=== PATIENT | female | born 1990 | race Caucasian/White ===

== ENCOUNTER 2017-01-24 16:22 | Emergency (ER) | payer OTHER ==
--- NOTE | 2017-01-24 17:46 | DIAGNOSTIC IMAGING REPORT ---
PROCEDURE: CT HEAD WITHOUT CONTRAST INDICATION: TRAUMA/INJURY TECHNIQUE: Axial CT images were acquired through the head. Coronal and sagittal reformations were created. Thin slice axial CT images through the facial bones with coronal and sagittal reformations. COMPARISON: None. FINDINGS: Head CT: No intracranial hemorrhage or extraaxial fluid collections. Ventricles are normal in size, shape and position. There is no mass, mass effect or midline shift. The churchill-white matter differentiation is normal. There is no edema. The calvarium is intact. No subgaleal hematoma. Facial bones CT: Nondisplaced impaction fracture of the midportion of the osseous nasal septum. Minimally displaced fracture of the right nasal bone and questionable nondisplaced fracture of the left. Transverse fracture through the anterior mid maxilla (best seen on sagittal series 602 image 34). A tiny fracture off the maxillary spine. Minimally displaced impaction fractures involving the medial maxillary sinus ralph bilaterally. Minor bowing deformities of lateral ralph of both maxillary sinuses. Maxillary sinuses are nearly completely opacified with a dependent air-fluid levels consistent with blood. The right-sided nasal passages are partially occluded. There is partial opacification of some of the right ethmoid air cells. Minimally displaced impaction fractures along the right medial orbital wall both ventrally and dorsally. Orbital floors and rims appear intact. Soft tissue contusion over the right cheek, and bilateral superior orbital rims, right greater than left. IMPRESSION: 1. No CT evidence of acute intracranial trauma. 2. Multiple minimally displaced fractures of the facial bones including nasal septum, nasal bone, maxilla, maxillary sinuses, and right medial orbital wall extending into the ethmoid air cells. [address] Jalloh at [address] scans at this facility use dose modulation, iterative reconstruction, and/or weight-based dosing when appropriate to reduce radiation dose to as low as reasonably achievable.
--- NOTE | 2017-01-24 17:50 | DIAGNOSTIC IMAGING REPORT ---
PROCEDURE: XR CHEST 2 VIEW INDICATION: TRAUMA TECHNIQUE: Two views. COMPARISON: None. FINDINGS: The cardiomediastinal contour and central vasculature are within normal limits. The lungs are clear without focal consolidation, pleural effusion, or pneumothorax. The visualized osseous structures are intact. IMPRESSION: 1. Normal chest.
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
--- NOTE | 2017-01-24 17:59 | ED ORDER SUMMARY ---
..... Patient: DANIEL DODGE OrderSheet [facility] VisitID: [id number] [place] [address] 26y, F Registration Date/Time: 01/24/2017 ORDER SHEET Weight: 74.8 kg (stated) Allergies: NKDA GENERAL ORDERS: CT Head wo Cont Urgent (16:34 01/24/2017 Chacho Chu) (Ack 16:53 TBergley) (17:00 [place]) CT Sinus/Facial Bones wo Cont Urgent (16:34 01/24/2017 Chacho Chu) (Ack 16:53 TBergley) (17:00 [place]) Chest 2V Urgent (16:35 01/24/2017 hCacho Chu) (Ack 16:53 TBergley) (17:00 [place]) CBC w Diff Urgent (16:35 01/24/2017 Chacho Chu) (Ack 16:53 TBergley) (Cancelled: cannot obtain IV18:11 RMarsden R.N.) CMP Urgent (16:35 01/24/2017 Chacho Chu) (Ack 16:53 TBergley) (Cancelled: cannot obtain IV18:11 RMarsden R.N.) PT with INR Urgent (16:35 01/24/2017 Chacho Chu) (Ack 16:53 TBergley) (Cancelled: cannot obtain IV18:11 RMarsden R.N.) PTT Urgent (16:35 01/24/2017 Chacho Chu) (Ack 16:53 TBergley) (Cancelled: cannot obtain IV18:11 RMarsden R.N.) UA-Culture if indicated Urgent (16:35 01/24/2017 Chacho Chu) (Ack 16:53 TBergley) (Cancelled: cannot obtain IV18:11 RMarsden R.N.) Urine Urgent (16:35 01/24/2017 Chacho Chu) (Ack 16:53 TBergley) (Cancelled: cannot obtain IV18:11 RMarsden R.N.) Ice (17:01/24/2017 Chacho Chu) (17:29 SReitz R.N.) MEDICATION ORDERS: Percocet PO 10/650 mg (HIGH ALERT MEDICATION, NOW) (17:48 01/24/2017 Chacho Chu) (17:53 Sheila R.NFemi) IV FLUIDS: Morphine IV 4 mg (HIGH ALERT MEDICATION, NOW) (16:35 01/24/2017 Chacho Chu) (Ack 16:43 Sheila R.N.) (Cancelled: Unable to obtain IV17:49 Sheila R.N.) ORDER SHEET NOTES: [Electronically signed by Danisha Gomez R.N. (18:59 01/24/2017)] [Electronically signed by Jorge Jalloh Dr. (09:25 01/27/2017)] [Electronically locked/signed by Danisha Gomez R.N. (18:59 01/24/2017)]
--- NOTE | 2017-01-24 17:59 | ED ORDER SUMMARY ---
..... Patient: DANIEL DODGE OrderSheet [facility] VisitID: [id number] [place] [address] 26y, F Registration Date/Time: 01/24/2017 ORDER SHEET Weight: 74.8 kg (stated) Allergies: NKDA GENERAL ORDERS: CT Head wo Cont Urgent (16:34 01/24/2017 Chacho Chu) (Ack 16:53 TBergley) (17:00 [place]) CT Sinus/Facial Bones wo Cont Urgent (16:34 01/24/2017 Chacho Chu) (Ack 16:53 TBergley) (17:00 [place]) Chest 2V Urgent (16:35 01/24/2017 Chacho Chu) (Ack 16:53 TBergley) (17:00 [place]) CBC w Diff Urgent (16:35 01/24/2017 Chacho Chu) (Ack 16:53 TBergley) (Cancelled: cannot obtain IV18:11 RMarsden R.N.) CMP Urgent (16:35 01/24/2017 Chacho Chu) (Ack 16:53 TBergley) (Cancelled: cannot obtain IV18:11 RMarsden R.N.) PT with INR Urgent (16:35 01/24/2017 Chacho Chu) (Ack 16:53 TBergley) (Cancelled: cannot obtain IV18:11 RMarsden R.N.) PTT Urgent (16:35 01/24/2017 Chacho Chu) (Ack 16:53 TBergley) (Cancelled: cannot obtain IV18:11 RMarsden R.N.) UA-Culture if indicated Urgent (16:35 01/24/2017 Chacho Chu) (Ack 16:53 TBergley) (Cancelled: cannot obtain IV18:11 RMarsden R.N.) Urine Urgent (16:35 01/24/2017 Chacho Chu) (Ack 16:53 TBergley) (Cancelled: cannot obtain IV18:11 RMarsden R.N.) Ice (17:01/24/2017 Chacho Chu) (17:29 SReitz R.N.) MEDICATION ORDERS: Percocet PO 10/650 mg (HIGH ALERT MEDICATION, NOW) (17:48 01/24/2017 Chacho Chu) (17:53 Sheila R.NFemi) IV FLUIDS: Morphine IV 4 mg (HIGH ALERT MEDICATION, NOW) (16:35 01/24/2017 Chacho Chu) (Ack 16:43 Sheila R.N.) (Cancelled: Unable to obtain IV17:49 Sheila R.N.) ORDER SHEET NOTES: [Electronically signed by Danisha Gomez R.N. (18:59 01/24/2017)] [Electronically signed by Jorge Jalloh Dr. (09:25 01/27/2017)] [Electronically locked/signed by Danisha Gomez R.N. (18:59 01/24/2017)]
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
--- NOTE | 2017-01-24 17:59 | ED NURSING NOTES ---
Clinical Report - Nurses [facility] [address] [place] [address] 01/24/2017 16:23 Patient: DANIEL DODGE TRIAGE Triage time 16:25. Acuity: LEVEL 3. Chief Complaint: INJURY TO HEAD, FOREHEAD and FACE. 16:34 01/24/17. Alert. No acute distress. SEPSIS SCREEN: Sepsis Screen. Negative (no infection suspected/documented). JONI COMA SCORE: Joni Coma Scale: 15- eyes open spontaneously (4); best verbal response- oriented x 4 (5); best motor response- obeys commands (6). --16:34 Danisha Gomez R.N. 16:25 01/24/17. HR: 115. RR: 22. O2 saturation: 96%. Temp: 98.1 F. --16:34 Danisha Gomez R.N. Weight: 74.8 kg stated. Height/Length: 62 inches Per Patient. BMI: 30.2. --16:34 Danisha Gomez R.N. Medications None. --16:27 Danisha Gomez R.N. Allergies NKDA. --16:28 Danisha Gomez R.N. History Arrived by private vehicle. Historian: patient. Accompanied by friend. This occurred just prior to arrival. ( Patient states "the eliot that was holding up the car broke and the car fell on my face."). She has had a headache. No loss of consciousness. No neck pain. Treatment DIRECTOR OF ESTATE: None. PAST MEDICAL HX: Tetanus status: up-to-date. Immunizations: up-to-date. Denies current . SOCIAL HX: Smoker- current status unknown. Alcohol use; consumes one beer and liquor. Last drink was less than 24 hours ago. No drug use. FALL RISK ASSESSMENT: Fall risk assessment completed. No fall risk identified. NUTRITIONAL RISK ASSESSMENT: The nutritional risk assessment revealed no deficiencies. FUNCTIONAL ASSESSMENT: Functional assessment: no impairments noted. LEARNING NEEDS ASSESSMENT: The learning needs assessment revealed no barriers. SKIN INTEGRITY ASSESSMENT: Skin integrity risk assessment completed. No skin integrity risk identified. --16:34 Danisha Gomez R.N. Interventions ID band on patient. To treatment room. --16:34 Danisha Gomez R.N. PHYSICAL ASSESSMENT 16:39 01/24/17. Ambulatory to room. GENERAL / NEURO / PSYCH: Alert. Oriented X 4. Appears in no acute distress. HEENT: Forehead: tenderness, swelling, erythema and ecchymosis (bruising and swelling located on right side of forehead.). Right cheek: tenderness, swelling, erythema and superficial 4.0 cm laceration with controlled bleeding. Pupils equal, round and reactive to light. Ear within normal limits. Nose: tenderness, erythema and small abrasion. Voice within normal limits. Mucous membranes are pink. RESPIRATORY: Respirations not labored. CVS: Capillary refill less than 2 seconds. BACK: No neck or back tenderness. ROM normal to the neck and back. SKIN: Skin is warm and dry. --16:39 Danisha Gomez R.N. NURSING PROGRESS NOTES 16:41 01/24/17. Two patient identifiers checked. Call light placed in reach. Side rails up x 2. Bed placed in lowest position. Brakes of bed on. ( C-collar placed upon arrival and removed after Dr. Jalloh's assessment.). --16:41 Danisha Gomez R.N. 16:48 01/24/17. Patient transported to [place] by stretcher with tech. --16:48 Danisha Gomez R.N. 17:51 01/24/2017 Percocet (Oxycodone-Acetaminophen) PO 10/650 mg Tablets 2 tab given. Allergies verified, confirmed 5 rights and sedative warning given. --17:53 Danisha Gomez R.N. 17:50. ( Dr. Jalloh agreed that blood lab orders could be cancelled due to the difficulty with obtaining IV access.). --18:12 Danisha Gomez R.N. DISPOSITION / DISCHARGE 17:59 01/24/17. --17:59 Danisha Gomez R.N. 18:09 01/24/17. --18:09 Danisha Gomez R.N. 18:01/24/17. BP: 130/84. HR: 104. RR: 15. O2 saturation: 100%. Temp: 98 F. Pain level now: 06/27. --18:09 Danisha Gomez R.N. 18:10 01/24/17. No learning barriers present. Discharge instructions provided and reviewed with the patient and family. Reviewed warnings. Reviewed medication(s). Treatments reviewed. Activity restrictions reviewed. Work note given. Patient, family and line erector verbalized understanding. Written instructions provided in Kyrgyz. The patient was discharged by the physician. She was discharged home and accompanied by parent. She left the Emergency Department ambulatory and via private vehicle. Parent driving. --18:10 Danisha Gomez R.N. ( ED physician notified about discharge VS at 18:08). --18:59 Danisha Gomez R.N. Locked/Released at 01/24/2017 18:59 by Danisha Gomez R.N.
--- NOTE | 2017-01-27 09:25 | ED MAR SUMMARY ---
..... Medication Administration Record [facility] [address] [place] [address] Patient: ADNIEL DODGE Visit ID: [id number] 26y, F Weight: 74.8 kg Height/Length: 62 in BMI: 30.2 ALLERGIES: NKDA Given 17:51 01/24/2017 Danisha Gomez R.N. Medication Administered: PERCOCET [PO] (OXYCODONE-ACETAMINOPHEN), Dose: 2 tab 10/650 mg Tablets PO. Medication Ordered: Percocet PO 10/650 mg (HIGH ALERT MEDICATION, NOW).
--- NOTE | 2017-01-27 09:25 | ED MAR SUMMARY ---
..... Medication Administration Record [facility] [address] [place] [address] Patient: DANIEL DODGE Visit ID: [id number] 26y, F Weight: 74.8 kg Height/Length: 62 in BMI: 30.2 ALLERGIES: NKDA Given 17:51 01/24/2017 Danisha Gomez R.N. Medication Administered: PERCOCET [PO] (OXYCODONE-ACETAMINOPHEN), Dose: 2 tab 10/650 mg Tablets PO. Medication Ordered: Percocet PO 10/650 mg (HIGH ALERT MEDICATION, NOW).
--- NOTE | 2017-01-27 09:25 | ED MED RECONCILIATION SUMMARY ---
Patient: DANIEL DODGE Medication Reconciliation Report [facility] VisitID: [id number] [place] [address] 26y, F Registration Date/Time: 01/24/2017 Weight: 74.8 kg Height/Length: 62 in. BMI: 30.2 ALLERGIES: NKDA The patient's Home Medications are listed below: NONE. The source(s) of the original Home Medication information: Not obtained. The following Medications were given to the patient in the Emergency Department: Percocet [PO] PO 2 tab, administered: 01/24/2017 5:51:00 PM The following Medications were prescribed to the patient: Motrin 600 mg tablets: take 1 tablet orally every 6 hours as needed for pain, stiffness or swelling. Dispense thirty (30). No refill. Substitution is permissible.(take with food) -- Jorge Jalloh Dr. Percocet 5 mg/325 mg: take 1-2 tablets orally every 6 hours as needed for pain. Dispense twenty (20). No refill. Substitution is permissible. -- Jorge Jalloh Dr.
--- NOTE | 2017-01-27 09:25 | ED DISCHARGE INSTRUCTIONS ---
Patient: DANIEL DODGE General Instructions [facility] VisitID: [id number] [address] [place] [address] 26y, F Registration Date/Time: 01/24/2017 01/24/2017 16:25 HR: 115. RR: 22. O2 saturation: 96%. Temp: 98.1 F. Oxygen saturation normal. Closed nasal fracture and fracture of the medial aspect of the right orbit. INSTRUCTIONS Off work for 5 days. Warnings: GENERAL WARNINGS: Return or contact your physician immediately if your condition worsens or changes unexpectedly, if not improving as expected, or if other problems arise. Specifically return if pain, vomiting, bleeding, breathing difficulty or fever. Your Current Medications: CONTINUE TAKING THE FOLLOWING MEDICATIONS: None*. Prescription Medications: Motrin 600 mg tablets: take 1 tablet orally every 6 hours as needed for pain, stiffness or swelling. Dispense thirty (30). No refill. Substitution is permissible. (take with food) Percocet 5 mg/325 mg: take 1-2 tablets orally every 6 hours as needed for pain. Dispense twenty (20). No refill. Substitution is permissible. Follow-up: Return to the emergency department as needed. Follow up with your doctor in three days. Reason for referral: recheck today's concerns. Summary of care provided to patient via paper. Follow up with doctor. Screening today revealed the patient's blood pressure to be in the normal range. The patient should follow up with a primary care provider for blood pressure management. Understanding of the discharge instructions verbalized by patient. Follow-up with: Nick Narayanan MD, ENT, , [address], , [place], [id number] Follow up in five days. Reason for referral: recheck today's concerns. Summary of care provided to patient and family via paper. ADDITIONAL INFORMATION Facial Fracture You have a break (fracture) in one of the bones of the face. A fracture can be small hairline crack in the bone with nothing out of place or a major break with a shifting of the bone out of position. Depending on the location a facial fracture can cause pain with chewing, nasal congestion, sinus pain, and nose bleeding. During the first 24 hours after injury, there may be further swelling or bruising at the site of the fracture or around your eyes. A blow to the face forceful enough to cause a fracture may also cause a concussion or more serious brain injury. Therefore, watch for the warning signs below. Home Care: Apply an ice pack (ice cubes in a plastic bag, wrapped in a towel) over the injured area for 20 minutes every 1-2 hours the first day. Continue with ice packs 3-4 times a day for the next two days, then as needed for the relief of pain and swelling. You may use acetaminophen (Tylenol) or ibuprofen (Motrin, Advil) to control pain, unless another pain medicine was prescribed. [NOTE: If you have chronic liver or kidney disease or ever had a stomach ulcer or GI bleeding, talk with your doctor before using these medicines.] Sleep with your head elevated on 2 or more pillows to reduce swelling. If you have facial pain when eating, avoid crunchy or chewy foods. A softer diet will be more comfortable for the first 2-3 weeks. If you were given antibiotics to prevent an infection, take them until the prescription is finished. If your nose bleeds, sit up and lean forward while pinching the nostrils together for five minutes (by the clock).If bleeding is not controlled, continue to pinch and call your doctor or return to this facility.Do not blow your nose for 12 hours after the bleeding stops. This will allow a strong blood clot to form. Do not pick your nose. Do not use ibuprofen, aspirin or similar drugs since this may promote nose bleeding. Follow Up with your doctor in one week, or as advised by our staff, to be sure the bone is healing properly. [NOTE: A radiologist will review any X-rays that were taken. We will notify you of any new findings that may affect your care.] Get Prompt Medical Attention if any of the following occur: Increasing facial swelling or pain Redness, warmth or pus from the injured area Fever of 100.4F (38C) or higher, or as directed by your healthcare provider Double vision Repeated vomiting Severe or worsening headache or dizziness Unusual drowsiness, or unable to awaken as usual Confusion or change in behavior or speech Convulsion (seizure) Fractured Nose [With X-Ray] You have a fracture (break) in the nasal bone. It may be a minor hairline crack or a major break with the parts pushed out of place. A fractured nose causes pain, swelling and nasal stuffiness. Sometimes, there is also bleeding from the nose. By the next day, it is common to get bruising around the eyes from a broken nose. A minor fracture will heal in about 3-4 weeks with no additional treatment needed. A major break, causing a change in shape of the nose, will require straightening of the nasal bones (reduction) by an ENT doctor (nose specialist). Some fractures may need a reduction as soon as possible (such as those with continued bleeding). Otherwise, it is best to wait a few days until the swelling has gone down. This gives a better result since the doctor can easily see when the nose is back in the right position. Home Care: Apply an ice pack (ice cubes in a plastic bag, wrapped in a towel) over the injured area for 20 minutes every 1-2 hours the first day. Continue with ice packs 3-4 times a day for the next two days, then as needed for the relief of pain and swelling. Notify your doctor if you are taking aspirin or blood thinners (coumadin). These will promote nose bleeding. Your dose may need to be adjusted. You may use acetaminophen (Tylenol) or ibuprofen (Motrin, Advil) to control pain, unless another medicine was prescribed. [NOTE: If you have chronic liver or kidney disease or ever had a stomach ulcer or GI bleeding, talk with your doctor before using these medicines.] Avoid alcohol and hot liquids for the next two days. Alcohol or hot liquids in your mouth can dilate blood vessels in your nose and cause bleeding. Avoid blowing your nose for the first two days. Then, do so gently so you don't cause bleeding. Do not play contact sports in the next six weeks unless you can protect your nose from re-injury. Special custom-fitted plastic face masks are available for this purpose. Follow Up with your doctor or as advised. If your nose appears crooked or if you continue to have difficulty breathing through one or both sides of your nose after the swelling goes down, call the ENT doctor (nose specialist) for an appointment. If you have trouble getting an ENT appointment, call your regular doctor or return here. If the bones are out of place, a reduction should be done between 6-10 days after the injury in adults; and between 3-7 days after injury in children. After that time, the bones become more difficult to move back into position. [NOTE: Any X-rays taken will be reviewed by a radiologist. You will be notified if there are new findings that may affect your care.] Get Prompt Medical Attention if any of the following occur: Bleeding from the nose that is not controlled by pinching the nostrils together for 15 minutes Increasing facial swelling, pain or redness Fever of 100.4F (38C) or higher, or as directed by your healthcare provider Unable to breathe from both sides of the nose after swelling goes down Sinus pain Repeated vomiting Severe or worsening headache or dizziness Unusual drowsiness, or unable to awaken as usual Confusion or change in behavior or speech Convulsion (seizure) Ibuprofen Oral tablet What is this medicine? IBUPROFEN (eye BYOO proe fen) is a non-steroidal anti-inflammatory drug (NSAID). It is used for dental pain, fever, headaches or migraines, osteoarthritis, rheumatoid arthritis, or painful monthly periods. It can also relieve minor aches and pains caused by a cold, flu, or sore throat. How should I use this medicine? Take this medicine by mouth with a glass of water. Follow the directions on the prescription label. Take this medicine with food if your stomach gets upset. Try to not lie down for at least 10 minutes after you take the medicine. Take your medicine at regular intervals. Do not take your medicine more often than directed. A special MedGuide will be given to you by the pharmacist with each prescription and refill. Be sure to read this information carefully each time. Talk to your flanging operator regarding the use of this medicine in children. Special care may be needed. What side effects may I notice from receiving this medicine? Side effects that you should report to your doctor or health intensive care nurse as soon as possible: allergic reactions like skin rash, itching or hives, swelling of the face, lips, or tongue black or bloody stools, blood in the urine or in vomit breathing problems changes in vision chest pain general ill feeling or flu-like symptoms nausea or vomiting redness, blistering, peeling or loosening of the skin, including inside the mouth slurred speech or weakness on one side of the body stomach pain unexplained weight gain or swelling unusually weak or tired yellowing of eyes or skin Side effects that usually do not require medical attention (report to your doctor or health intensive care nurse if they continue or are bothersome): constipation or diarrhea dizziness gas or heartburn stomach upset What may interact with this medicine? Do not take this medicine with any of the following medications: cidofovir ketorolac methotrexate pemetrexed This medicine may also interact with the following medications: alcohol aspirin diuretics lithium other drugs for inflammation like prednisone warfarin What if I miss a dose? If you miss a dose, take it as soon as you can. If it is almost time for your next dose, take only that dose. Do not take double or extra doses. Where should I keep my medicine? Keep out of the reach of children. Store at room temperature between 15 and 30 degrees C (59 and 86 degrees F). Keep container tightly closed. Throw away any unused medicine after the expiration date. What should I tell my health care provider before I take this medicine? They need to know if you have any of these conditions: asthma cigarette smoker drink more than 3 alcohol containing drinks a day heart disease or circulation problems such as heart failure or leg edema (fluid retention) high blood pressure kidney disease liver disease stomach bleeding or ulcers an unusual or allergic reaction to ibuprofen, aspirin, other NSAIDS, other medicines, foods, dyes, or preservatives or trying to get breast-feeding What should I watch for while using this medicine? Tell your doctor or healthcare professional if your symptoms do not start to get better or if they get worse. This medicine does not prevent heart attack or stroke. In fact, this medicine may increase the chance of a heart attack or stroke. The chance may increase with longer use of this medicine and in people who have heart disease. If you take aspirin to prevent heart attack or stroke, talk with your doctor or health intensive care nurse. Do not take other medicines that contain aspirin, ibuprofen, or naproxen with this medicine. Side effects such as stomach upset, nausea, or ulcers may be more likely to occur. Many medicines available without a prescription should not be taken with this medicine. This medicine can cause ulcers and bleeding in the stomach and intestines at any time during treatment. Ulcers and bleeding can happen without warning symptoms and can cause . To reduce your risk, do not smoke cigarettes or drink alcohol while you are taking this medicine. You may get drowsy or dizzy. Do not drive, use machinery, or do anything that needs mental alertness until you know how this medicine affects you. Do not stand or sit up quickly, especially if you are an older patient. This reduces the risk of dizzy or fainting spells. This medicine can cause you to bleed more easily. Try to avoid damage to your teeth and gums when you brush or floss your teeth. Oxycodone Hydrochloride, Acetaminophen Oral tablet What is this medicine? ACETAMINOPHEN; OXYCODONE (a set a ZAHDIA uzair fen; ox i KOE done) is a pain reliever. It is used to treat mild to moderate pain. How should I use this medicine? Take this medicine by mouth with a full glass of water. Follow the directions on the prescription label. Take your medicine at regular intervals. Do not take your medicine more often than directed. Talk to your flanging operator regarding the use of this medicine in children. Special care may be needed. Patients over 65 years old may have a stronger reaction and need a smaller dose. What side effects may I notice from receiving this medicine? Side effects that you should report to your doctor or health intensive care nurse as soon as possible: allergic reactions like skin rash, itching or hives, swelling of the face, lips, or tongue breathing difficulties, wheezing confusion light headedness or fainting spells severe stomach pain yellowing of the skin or the whites of the eyes Side effects that usually do not require medical attention (report to your doctor or health intensive care nurse if they continue or are bothersome): dizziness drowsiness nausea vomiting What may interact with this medicine? alcohol antihistamines barbiturates like amobarbital, butalbital, butabarbital, methohexital, pentobarbital, phenobarbital, thiopental, and secobarbital benztropine drugs for bladder problems like solifenacin, trospium, oxybutynin, tolterodine, hyoscyamine, and methscopolamine drugs for breathing problems like ipratropium and tiotropium drugs for certain stomach or intestine problems like propantheline, homatropine methylbromide, glycopyrrolate, atropine, belladonna, and dicyclomine general anesthetics like etomidate, ketamine, nitrous oxide, propofol, desflurane, enflurane, halothane, isoflurane, and sevoflurane medicines for depression, anxiety, or psychotic disturbances medicines for sleep muscle relaxants naltrexone narcotic medicines (opiates) for pain phenothiazines like perphenazine, thioridazine, chlorpromazine, mesoridazine, fluphenazine, prochlorperazine, promazine, and trifluoperazine scopolamine tramadol trihexyphenidyl What if I miss a dose? If you miss a dose, take it as soon as you can. If it is almost time for your next dose, take only that dose. Do not take double or extra doses. Where should I keep my medicine? Keep out of the reach of children. This medicine can be abused. Keep your medicine in a safe place to protect it from theft. Do not share this medicine with anyone. Selling or giving away this medicine is dangerous and against the law. Store at room temperature between 20 and 25 degrees C (68 and 77 degrees F). Keep container tightly closed. Protect from light. This medicine may cause accidental overdose and if it is taken by other adults, children, or pets. Flush any unused medicine down the toilet to reduce the chance of harm. Do not use the medicine after the expiration date. What should I tell my health care provider before I take this medicine? They need to know if you have any of these conditions: brain tumor Crohn's disease, inflammatory bowel disease, or ulcerative colitis drink more than 3 alcohol containing drinks per day drug abuse or addiction head injury heart or circulation problems kidney disease or problems going to the bathroom liver disease lung disease, asthma, or breathing problems an unusual or allergic reaction to acetaminophen, oxycodone, other opioid analgesics, other medicines, foods, dyes, or preservatives or trying to get breast-feeding What should I watch for while using this medicine? Tell your doctor or health intensive care nurse if your pain does not go away, if it gets worse, or if you have new or a different type of pain. You may develop tolerance to the medicine. Tolerance means that you will need a higher dose of the medication for pain relief. Tolerance is normal and is expected if you take this medicine for a long time. Do not suddenly stop taking your medicine because you may develop a severe reaction. Your body becomes used to the medicine. This does NOT mean you are addicted. Addiction is a behavior related to getting and using a drug for a non-medical reason. If you have pain, you have a medical reason to take pain medicine. Your doctor will tell you how much medicine to take. If your doctor wants you to stop the medicine, the dose will be slowly lowered over time to avoid any side effects. You may get drowsy or dizzy. Do not drive, use machinery, or do anything that needs mental alertness until you know how this medicine affects you. Do not stand or sit up quickly, especially if you are an older patient. This reduces the risk of dizzy or fainting spells. Alcohol may interfere with the effect of this medicine. Avoid alcoholic drinks. There are different types of narcotic medicines (opiates) for pain. If you take more than one type at the same time, you may have more side effects. Give your health care provider a list of all medicines you use. Your doctor will tell you how much medicine to take. Do not take more medicine than directed. Call emergency for help if you have problems breathing. The medicine will cause constipation. Try to have a bowel movement at least every 2 to 3 days. If you do not have a bowel movement for 3 days, call your doctor or health intensive care nurse. Do not take Tylenol (acetaminophen) or medicines that have acetaminophen with this medicine. Too much acetaminophen can be very dangerous. Many nonprescription medicines contain acetaminophen. Always read the labels carefully to avoid taking more acetaminophen. You have been given the following additional information: Facial Fracture Fracture, Nose (With X-Ray) Ibuprofen Oral tablet Oxycodone Hydrochloride, Acetaminophen Oral tablet Off work for 5 days. (Electronically signed by Jorge Jalloh Dr. 01/27/2017 9:25)
--- NOTE | 2017-01-27 09:25 | ED MED RECONCILIATION SUMMARY ---
Patient: DANIEL DODGE Medication Reconciliation Report [facility] VisitID: [id number] [place] [address] 26y, F Registration Date/Time: 01/24/2017 Weight: 74.8 kg Height/Length: 62 in. BMI: 30.2 ALLERGIES: NKDA The patient's Home Medications are listed below: NONE. The source(s) of the original Home Medication information: Not obtained. The following Medications were given to the patient in the Emergency Department: Percocet [PO] PO 2 tab, administered: 01/24/2017 5:51:00 PM The following Medications were prescribed to the patient: Motrin 600 mg tablets: take 1 tablet orally every 6 hours as needed for pain, stiffness or swelling. Dispense thirty (30). No refill. Substitution is permissible.(take with food) -- Jorge Jalloh Dr. Percocet 5 mg/325 mg: take 1-2 tablets orally every 6 hours as needed for pain. Dispense twenty (20). No refill. Substitution is permissible. -- Jorge Jalloh Dr.
== END 2017-01-24 18:10 | disposition home or self-care (01) ==
LOC: ED SRH 16:22
DX: S02.2XXA Fracture of nasal bones, initial encounter for closed fracture (principal); S02.80XA Fracture of other specified skull and facial bones, unspecified side, initial encounter for closed fracture; W20.8XXA Other cause of strike by thrown, projected or falling object, initial encounter; Y93.9 Activity, unspecified; Y92.009 Unspecified place in unspecified non-institutional (private) residence as the place of occurrence of the external cause; Y99.9 Unspecified external cause status